=== PATIENT | female | born 1950 | race Caucasian/White ===

== ENCOUNTER 2020-05-12 08:47 | Emergency (ER) | payer OTHER ==
[~2020-05-12] VITALS: Ht 154.9 cm; Wt 93.4 kg
[~2020-05-12 08:47] MED LIST: ATENOLOL50 MG
[2020-05-12] MEDS ORDERED: INTESTINEX680 M1 PO (16:49)
[2020-05-12] MEDS ORDERED: FLAGYL500MG PO (16:49)
[2020-05-12] MEDS ORDERED: CIPRO500 MG PO (16:49)
[2020-05-12] MEDS ORDERED: PEPCID AC20 MG PO (16:49)
== END 2020-05-12 18:06 | disposition home or self-care (01) ==
LOC: ER 08:47
DX: K57.92 Diverticulitis of intestine, part unspecified, without perforation or abscess without bleeding (principal)

== ENCOUNTER 2020-06-19 07:14 | Day surgery (SDC) | payer OTHER ==
[~2020-06-19 07:14] MED LIST changes: +CIPRO500 MG PO; +FLAGYL500MG PO; +INTESTINEX680 M1 PO; +PEPCID AC20 MG PO
== END 2020-06-19 11:10 | disposition home or self-care (01) ==
LOC: AMB-ENDOS 07:14 → EDBD 13:45
PROVIDERS: ATTEND Colon & Rectal Surgery
DX: K62.89 Other specified diseases of anus and rectum (principal); K64.1 Second degree hemorrhoids; Z20.828 Contact with and (suspected) exposure to other viral communicable diseases